=== PATIENT | male | born 1975 | race Two or more races ===

== ENCOUNTER → 2018-11-01 | Outpatient (REF) ==
--- NOTE | 2018-11-01 15:42 | RADIOLOGY IMAGING REPORT ---
[place] [facility] [place] NAME: Joseph Chavez : 1975 MR: [id number] V: [id number] EXAM DATE: ORDERING PHYSICIAN: GALILEA KENNEY TECHNOLOGIST: Location: [facility] - [place] Patient: Joseph Chavez : 1975 Visit/Account:[id number] Date of Sevice: 11/01/2018 L-SPINE 2 OR 3 VIEW HISTORY: Low back pain COMPARISON: None FINDINGS: The visualized vertebral bodies exhibit normal height without spondylolisthesis. No significant dege nerative changes. IMPRESSION: 1. Normal lumbar spine Report Dictated By: Ronnell Barlow MD at 11/01/2018 3:36 PM Report E-Signed By: Ronnell Barlow MD at 11/01/2018 3:37 PM WSN:[email or web address]
== END ==
LOC: RAD 15:01
PROVIDERS: ATTEND Family Medicine
DX: M79.605 Pain in left leg (principal)
CPT/HCPCS: 72100